=== PATIENT | female | born 1975 | race African-American/Black ===

== ENCOUNTER 2021-08-17 15:49 | Emergency (ER) | payer MEDICAID ==
[~2021-08-17] VITALS: Ht 154.9 cm; Wt 54.0 kg
[2021-08-17] MEDS ORDERED: KETOROLAC 60MG/2ML VIAL IM ONE (16:45)
[2021-08-17] MEDS ORDERED: IBUP-2029 MT (16:45)
[2021-08-17] MEDS ORDERED: NIRM1TAB PO (16:45)
[2021-08-17 17:05] VITALS: BP 123/78
== END 2021-08-17 17:06 | disposition home or self-care (01) ==
LOC: ER 15:49
DX: U07.1 COVID-19 (principal); E11.9 Type 2 diabetes mellitus without complications
CPT/HCPCS: 96372; 99283; J1885